=== PATIENT | male | born 1930 | race Caucasian/White ===

== ENCOUNTER 2017-07-03 16:23 | Emergency (ER) | payer MEDICARE, OTHER ==
[2017-07-03 16:35] VITALS: BP 164/89; TEMP 98.3; O2SAT 96
--- NOTE | 2017-07-03 16:44 | ED.PDOC ---
History of Present Illness - General Chief Complaint: Problem Stated Complaint: blood in urine Time Seen by Provider: 07/03/17 16:41 Source: patient Exam Limitations: no limitations - History of Present Illness Initial Comments: Cisco Rascon 87 y/o male stated that he had bloody urination which started this am denies dysuria,prostate problems,taking blood thinners.No previous history. Timing/Duration: this morning Quality: mild Onset Location: other - NO PAINFUL URINATION Radiation: none Activites at Onset: none Prior abdominal problems: none Sexual intercourse history: not active Improving Factors: nothing Worsening Factors: nothing Associated Symptoms: denies symptoms Allergies/Adverse Reactions: Allergies NO KNOWN ALLERGY Allergy (Verified 07/03/17 16:34) Home Medications: Ambulatory Orders Aspirin [(None)] 325 mg PO QD 07/03/17 Esomeprazole Magnesium [Nexium] 40 mg PO DAILY 07/03/17 Sulfa/Trimeth 800/160 (Ds) Tab [Bactrim DS Tab] 1 ea PO BID #20 tab 07/03/17 amLODIPine BESYLATE [Norvasc] 5 mg PO DAILY 07/03/17 Review of Systems - Review of Systems Constitutional: States: no symptoms reported Respiratory: States: no symptoms reported Cardiology: States: no symptoms reported Gastrointestinal/Abdominal: States: no symptoms reported Genitourinary: States: see HPI Musculoskeletal: States: no symptoms reported Hematologic/Lymphatic: States: no symptoms reported Past Medical History (General) - Patient Medical History Hx Congestive Heart Failure: No Hx Hypertension: Yes Hx Diabetes: No Hx Gastroesophageal Reflux: Yes Surgical History: appendectomy, cholecystectomy, other - hiatal and groin hernia repair,colonoscopy,egd - Vaccination History Hx Influenza Vaccination: Yes Hx Pneumococcal Vaccination: Yes - Social History Hx Tobacco Use: No Family Medical History - Family History Father Family History: Unknown Living Status: Hx Family Congestive Heart Failure: Yes - dad of old age Hx Family Cancer: Yes - breast- mom;colon-sister;multiple myeloma-sister Physical Exam - Physical Exam General Appearance: Alert, Comfortable, No apparent distress Eyes, Ears, Nose, Throat Exam: PERRL/EOMI, normal ENT inspection Neck: non-tender, full range of motion Cardiovascular/Respiratory: regular rate, rhythm, no M/R/G, no JVD Gastrointestinal/Abdominal: normal bowel sounds, non tender, soft Rectal Exam: normal rectal tone, other - enlarged prostate Male Genital Exam: normal genitalia, no hernia Back Exam: no CVA tenderness Extremity: normal range of motion, non-tender Neurologic: alert, normal mood/affect, oriented x 3 Skin Exam: normal color, warm/dry Lymphatic: no adenopathy Progress - Progress Progress: 07/03/17 17:32 Vital Signs - 8 hr 07/03/17 16:32 Temperature 98.3 F Pulse Rate [ 110 H Left Brachial] Respiratory 20 Rate Blood Pressure 164/89 [Left Arm] O2 Sat by Pulse 96 Oximetry Laboratory Tests 07/03/17 07/03/17 07/03/17 16:35 17:03 17:03 WBC 5.0 RBC 4.88 Hgb 16.0 Hct 47.0 MCV 96.2 H MCH 32.8 H MCHC 34.1 RDW 13.0 Plt Count 184 MPV 8.1 Absolute Neuts (auto) 3.10 Absolute Lymphs (auto) 1.40 Absolute Monos (auto) 0.30 Absolute Eos (auto) 0.10 Absolute Basos (auto) 0.10 Neutrophils % 61.7 Lymphocytes % 28.6 Monocytes % 6.1 Eosinophils % 2.5 Basophils % 1.1 Sodium 138 Potassium 3.9 Chloride 104 Carbon Dioxide 25 Anion Gap 12.9 BUN 19 H Creatinine 1.24 BUN/Creatinine Ratio 15.3 Random Glucose 178 H Serum Osmolality 282.4 Calcium 9.1 Total Bilirubin 1.1 H AST 17 ALT 14 Alkaline Phosphatase 79 Serum Total Protein 7.5 Albumin 4.3 Globulin 3.2 Albumin/Globulin Ratio 1.3 Urine Color Red Urine Appearance Sl cloudy Urine pH 6.5 Ur Specific [place] 1.015 Urine Protein 100 H Urine Glucose (UA) Negative Urine Ketones 15 H Urine Blood Large H Urine Nitrite Negative Urine Bilirubin Moderate Urine Urobilinogen 2.0 H Ur Leukocyte Esterase Large H Urine RBC Tntc H Urine WBC Obscured by rbc's H Ur Epithelial Cells Obscured by rbc's Urine Bacteria Obscured by rbc's H Departure - Departure Clinical Impression: Hematuria Qualifiers: Hematuria type: gross Qualified Code(s): R31.0 - Gross hematuria Urinary tract infection Qualifiers: Urinary tract infection type: site unspecified Hematuria presence: with hematuria Qualified Code(s): N39.0 - Urinary tract infection, site not specified Time of Disposition: 17:35 Disposition: Discharge to Home or Self Care Condition: Fair Departure Forms: ED Discharge - Pt. Copy, Patient Portal Self Enrollment Instructions: Blood in Urine, DI for Hematuria Referrals: Jose Luis Merritt MD [Primary Care Provider] - 1-2 Weeks Prescriptions: Sulfa/Trimeth 800/160 (Ds) Tab [Bactrim DS Tab] 1 ea PO BID #20 tab Home Medications: Ambulatory Orders Aspirin [(None)] 325 mg PO QD 07/03/17 Esomeprazole Magnesium [Nexium] 40 mg PO DAILY 07/03/17 Sulfa/Trimeth 800/160 (Ds) Tab [Bactrim DS Tab] 1 ea PO BID #20 tab 07/03/17 amLODIPine BESYLATE [Norvasc] 5 mg PO DAILY 07/03/17 Additional Instructions: Follow up with primary md in am call for appointment for referral to UROLOGIST
[2017-07-03] MEDS ORDERED: SULFA/TRIMETH 800/160 (DS) TAB 1 EA TAB PO ONE (17:20)
[2017-07-03] MEDS ORDERED: SULFA/TRIMETH TAB 800/160 (ER) 1 EA TAB PO ONE (17:40)
== END 2017-07-03 17:56 | disposition home or self-care (01) ==
LOC: ER 16:23
DX: N39.0 Urinary tract infection, site not specified (principal); R31.0 Gross hematuria; I10 Essential (primary) hypertension; K21.9 Gastro-esophageal reflux disease without esophagitis

== ENCOUNTER → 2017-09-07 | Outpatient (CLI) | payer MEDICARE, OTHER | END | disposition home or self-care (01) | LOC: GMAH 15:08 | PROVIDERS: ATTEND Family Medicine | DX: E53.8 Deficiency of other specified B group vitamins (principal) ==